=== PATIENT | male | born 1945 | race Caucasian/White ===

== ENCOUNTER 2020-09-30 08:23 | Day surgery (SDC) | payer MEDICARE ==
[2020-09-30] VITALS (8 sets, daily range): BP systolic 107–132; BP diastolic 48–68
[~2020-09-30] VITALS: Ht 188 cm; Wt 100.5 kg
[2020-09-30] MEDS ORDERED: ASPI-1265 PO (09:06)
[2020-09-30] MEDS ORDERED: ROSU20TA2 PO (09:06)
[2020-09-30] MEDS ORDERED: SYN0.088T PO (09:06)
[2020-09-30] MEDS ORDERED: FURO-150 PO (09:06)
[2020-09-30] MEDS ORDERED: FINA5TAB3 PO (09:06)
[2020-09-30] MEDS ORDERED: DASA70TA PO (09:06)
[2020-09-30] MEDS ORDERED: FLO0.4C PO (09:06)
[2020-09-30] MEDS ORDERED: MESA1.2T3 PO (09:06)
[2020-09-30] MEDS ORDERED: ROSU40TA PO (09:06)
[2020-09-30] MEDS ORDERED: METF500T PO (09:06)
[2020-09-30] MEDS ORDERED: METO-411 PO (09:06)
[2020-09-30] MEDS ORDERED: SITA100T11 PO (09:06)
[2020-09-30 10:47] LABS: GLUCOSE,BODY FLUID 117 MG/DL; LDH,BODY FLUID 85 U/L; TOTAL PROTEIN,BODY FLUID 4.1 G/DL
[2020-09-30 11:06] LABS: LYMPHOCYTES,BODY FLUID 91 %; MONOCYTES,BODY FLUID 6 %; NEUTROPHILS,BODY FLUID 3 %
[2020-09-30 11:08] LABS: LYMPHOCYTES,BODY FLUID 81 %; MONOCYTES,BODY FLUID 18 %; NEUTROPHILS,BODY FLUID 1 %
[2020-09-30 11:09] LABS: BF WBC COUNT 1025 /CU MM (0-1000); BFAPPEAR HAZY; BFCOLOR YELLOW; BFVOLUME 50 ML
[2020-09-30 11:10] LABS: BF MESOTHELIAL CELLS FEW; BF RBC COUNT 485 /CU MM
[2020-09-30 11:11] LABS: BF MESOTHELIAL CELLS OCCASIONAL; BF RBC COUNT 4100 /CU MM; BF WBC COUNT 2500 /CU MM (0-1000); BFAPPEAR CLOUDY; BFCOLOR AMBER; BFVOLUME 50 ML; GLUCOSE,BODY FLUID 116 MG/DL; LDH,BODY FLUID 105 U/L; TOTAL PROTEIN,BODY FLUID 3.9 G/DL
== END 2020-09-30 11:05 | disposition home or self-care (01) ==
LOC: SSTAY O 08:23
PROVIDERS: ATTEND Radiology Diagnostic Radiology
DX: J90 Pleural effusion, not elsewhere classified (principal); E11.9 Type 2 diabetes mellitus without complications; I10 Essential (primary) hypertension; E03.9 Hypothyroidism, unspecified; Z85.6 Personal history of leukemia; Z95.1 Presence of aortocoronary bypass graft; Z72.89 Other problems related to lifestyle
CPT/HCPCS: 32555; 71045; 82945; 83615; 84157; 87070; 89051

== ENCOUNTER 2021-05-04 08:32 | Day surgery (SDC) | payer MEDICARE ==
[~2021-05-04] VITALS: Ht 188 cm; Wt 106.9 kg
[~2021-05-04 08:32] MED LIST: ASPI-1265 PO; DASA70TA PO; FINA5TAB3 PO; FLO0.4C PO; FURO-150 PO; MESA1.2T3 PO; METF500T PO; METO-411 PO; ROSU20TA2 PO; ROSU40TA PO; SITA100T11 PO; SYN0.088T PO
[2021-05-04 09:03] VITALS: BP 131/66
[2021-05-04] MEDS ORDERED: albumin 25% 100mL bottle x 1 IV PRN (09:10)
[2021-05-04 10:05] VITALS: BP 132/66
[2021-05-04 10:17] VITALS: BP 130/65
[2021-05-04 10:35] VITALS: BP 125/62
[2021-05-04 10:50] VITALS: BP 120/66
== END 2021-05-04 10:55 | disposition home or self-care (01) ==
LOC: SSTAY O 08:32
PROVIDERS: ATTEND Radiology Vascular & Interventional Radiology
DX: J91.8 Pleural effusion in other conditions classified elsewhere (principal)
CPT/HCPCS: 32555